=== PATIENT | female | born 1985 ===

== ENCOUNTER 2016-07-03 | Outpatient (CLI) | payer OTHER | END 2016-07-03 18:22 | disposition short-term general hospital (02) | CPT/HCPCS: A0425; A0427 ==

== ENCOUNTER 2016-07-18 10:04 | Outpatient (CLI) | payer OTHER | END 2016-07-18 10:05 | disposition short-term general hospital (02) | DX: O46.93 Antepartum hemorrhage, unspecified, third trimester (principal); O30.003 Twin pregnancy, unspecified number of placenta and unspecified number of amniotic sacs, third trimester; Z3A.31 31 weeks gestation of pregnancy | CPT/HCPCS: A0425; A0427 ==